=== PATIENT | male | born 1955 | race Caucasian/White ===

== ENCOUNTER 2018-04-18 15:25 | Emergency (ER) | payer MEDICAID ==
[~2018-04-18] VITALS: Ht 182.9 cm; Wt 77.1 kg
[~2018-04-18 15:25] MED LIST: AZOR 5-40 MG T1 EACH; CHLORTHALIDONE25 MG; COMBIVENT; NITROGLYCERIN0.4 MG; PROAIR HFA8.5 GM; VICODIN ES TAB1 EACH
[2018-04-18 16:20] LABS: HEMATOCRIT 54.1 % (42.0-52.0); HEMOGLOBIN 19.1 gm/dL (14.0-18.0); MCHC 35.2 g/dL (28.0-37.0); MCV 96.6 fL (80.0-100.0); MPV 8.2 fl. (7.2-11.1); NUCLEATED RBCS 0 /100WBC; PLATELET COUNT* 141 thou/uL (150-400); RBC 5.61 mil/uL (4.50-6.00); RDW-CV 14.2 % (10.5-14.5)
[2018-04-18 16:29] LABS: CALCIUM 8.7 mg/dL (8.5-10.1); POTASSIUM 3.8 mmol/L (3.5-5.1)
[2018-04-18 16:33] LABS: TOTAL BILIRUBIN 2.5 mg/dL (<0.1-1.0); TOTAL PROTEIN 7.8 g/dL (6.4-8.2)
[2018-04-18 16:41] LABS: ABSOLUTE BASOPHILS 0.1 thou/uL (0.0-0.2); ABSOLUTE LYMPHOCYTES 0.8 thou/uL (0.8-5.3); ABSOLUTE MONOCYTES 0.8 thou/uL (0.0-1.2); ABSOLUTE NEUTROPHILS 7.3 thou/uL (1.6-8.1)
[2018-04-18 16:42] LABS: PLATELET ESTIMATE DECREASED
[2018-04-18 16:43] LABS: LARGE PLATELETS OCCASIONAL; MACROCYTES Occasional
[2018-04-18 17:03] LABS: URINE BLOOD 1+ (Negative); URINE CLARITY CLEAR; URINE COLOR YELLOW; URINE GLUCOSE-RANDOM NEGATIVE (Negative); URINE LEUKOCYTES NEGATIVE (Negative); URINE NITRITE NEGATIVE (Negative); URINE PROTEIN NEGATIVE (Negative); URINE SPECIFIC GRAVITY 1.025 (1.005-1.030)
[2018-04-18 17:04] LABS: URINE BILIRUBIN 1+ (Negative); URINE KETONES 3+ (Negative)
[2018-04-18 17:05] LABS: ICTOTEST (BILI CONFIRMATORY) Negative (Negative)
[2018-04-18 17:09] LABS: MUCUS 0-3 Light strn/LPF (None Seen); SQUAMOUS >10 Many /LPF (0-3)
[2018-04-18 17:10] LABS: AMP/METHAMP Negative (Negative); BACTERIA None Seen /HPF (None Seen); BARBITURATES Negative (Negative); BENZODIAZEPINES Negative (Negative); CASTS None Seen /LPF (None Seen); COCAINE Negative (Negative); CRYSTALS None Seen /LPF (None Seen); METHADONE Negative (Negative); OPIATES Negative (Negative); PCP Negative (Negative); THC POSITIVE (Negative); URINE RBC 0-2 Rare /HPF (0-2); URINE WBC 0-5 Rare /HPF (0-5)
[2018-04-18 17:33] LABS: APTT 29.4 Seconds (25.0-31.3); INR 1.2; PROTIME 11.8 Seconds (9.20-11.50)
[2018-04-18] MEDS ORDERED: HYDROCODONE-AP1 EAC6 PO (17:56)
[2018-04-18] MEDS ORDERED: KEFLEX500 M1 PO (17:56)
[2018-04-18 18:15] VITALS: BP 175/89
== END 2018-04-18 18:24 | disposition home or self-care (01) ==
LOC: M.ERS 15:25
PROVIDERS: Nurse Practitioner Family
DX: S01.81XA Laceration without foreign body of other part of head, initial encounter (principal); S70.01XA Contusion of right hip, initial encounter; J44.9 Chronic obstructive pulmonary disease, unspecified; I10 Essential (primary) hypertension; M19.90 Unspecified osteoarthritis, unspecified site; F17.210 Nicotine dependence, cigarettes, uncomplicated; Z88.5 Allergy status to narcotic agent; Z88.6 Allergy status to analgesic agent; W18.39XA Other fall on same level, initial encounter; Y93.89 Activity, other specified; Y92.89 Other specified places as the place of occurrence of the external cause; Y99.8 Other external cause status

== ENCOUNTER 2019-02-05 16:12 | Emergency (ER) | payer MEDICAID ==
[~2019-02-05] VITALS: Ht 193 cm; Wt 77.1 kg
[~2019-02-05 16:12] MED LIST changes: +HYDROCODONE-AP1 EAC6 PO; +KEFLEX500 M1 PO
[2019-02-05] MEDS ORDERED: PERCOCET PO (17:40)
[2019-02-05] MEDS ORDERED: IBUPROFEN 800800 M1 PO (17:40)
[2019-02-05 18:06] VITALS: BP 120/72
== END 2019-02-05 18:06 | disposition home or self-care (01) ==
LOC: M.ERS 16:12
DX: S52.592A Other fractures of lower end of left radius, initial encounter for closed fracture (principal); J44.9 Chronic obstructive pulmonary disease, unspecified; M13.842 Other specified arthritis, left hand; M13.841 Other specified arthritis, right hand; I10 Essential (primary) hypertension; F17.210 Nicotine dependence, cigarettes, uncomplicated; Z88.5 Allergy status to narcotic agent; W01.198A Fall on same level from slipping, tripping and stumbling with subsequent striking against other object, initial encounter; Y93.89 Activity, other specified; Y92.89 Other specified places as the place of occurrence of the external cause; Y99.8 Other external cause status